=== PATIENT | male | born 1985 | race Hispanic/Latino ===

== ENCOUNTER 2018-12-04 15:33 | Inpatient (IN) | payer BC ==
[~2018-12-04] VITALS: Ht 167.6 cm; Wt 96.6 kg
[2018-12-04 15:55] LABS: BASOPHILS % (AUTO) 0.4 % (0.0-5.0); EOSINOPHILS % (AUTO) 0.6 % (0.0-8.0); HEMATOCRIT 45.1 % (42-54); LYMPHOCYTES % (AUTO) 17.7 % (21.0-51.0); MEAN CORPUSCULAR HEMOGLOBIN 30.9 pg (27.0-33.0); MEAN CORPUSCULAR HGB CONC 35.3 g/dL (32.0-36.0); MEAN CORPUSCULAR VOLUME 87.4 fL (79-99); MONOCYTES % (AUTO) 6.6 % (3.0-13.0); NEUTROPHILS % (AUTO) 74.7 % (40.0-77.0); NUCLEATED RED BLOOD CELLS 0.1 % (0.0-0.19); PLATELET COUNT (AUTO) 244 K/uL (130-400); RED BLOOD CELL COUNT(AUTO) 5.15 MIL/uL (4.50-6.20); RED CELL DISTRIBUTION WIDTH 13.8 % (11.0-15.5); WHITE BLOOD COUNT (AUTO) 15.6 K/uL (4.8-10.8)
[2018-12-04 16:09] LABS: POTASSIUM 3.6 mmol/L (3.5-5.1)
[2018-12-04 16:10] LABS: APPEARANCE,URINE Clear (CLEAR); BILIRUBIN,URINE Negative (NEGATIVE); COLOR,URINE Yellow (YELLOW); GLUCOSE, URINE (UA) Negative (NEGATIVE); KETONES,URINE Negative (NEGATIVE); LEUKOCYTE ESTERASE ,URINE Negative (NEGATIVE); NITRATE,URINE Negative (NEGATIVE); OCCULT BLOOD,URINE Negative (NEGATIVE); PH,URINE 6.5 (5.0-8.0); PROTEIN,URINE Negative (NEGATIVE)
[2018-12-04] MEDS ORDERED: KETOROLAC TROMETHAMINE 30MG/ML ONE (16:11)
[2018-12-04] MEDS ORDERED: SODIUM CHLORIDE 0.9% 1000ML 1,000 ML IV ONE ×2 (16:11→18:19)
[2018-12-04] MEDS ORDERED: ONDANSETRON HCL 4 MG/2 ML VIAL ONE ×2 (16:11→18:19)
[2018-12-04] MEDS ORDERED: MORPHINE SULFATE 4 MG/1ML SYG ONE ×2 (16:11→18:19)
[2018-12-04 16:21] LABS: BILIRUBIN,TOTAL 1.7 mg/dL (0.2-1.0); TOTAL PROTEIN, SERUM 7.6 g/dL (6.0-8.3)
[2018-12-04] MEDS ORDERED: SODIUM CHLORIDE 0.9% 1000ML 1,000 ML IV SCH (19:34)
[2018-12-04] MEDS ORDERED: ONDANSETRON HCL 4 MG/2 ML VIAL IVP PRN (19:45)
[2018-12-04] MEDS ORDERED: MORPHINE SULFATE 4 MG/1ML SYG IV PRN (19:45)
[2018-12-04] MEDS ORDERED: FAMOTIDINE/PF 20 MG/2 ML VIAL IV SCH (21:00)
[2018-12-05] MEDS ORDERED: ONDANSETRON HCL 4 MG/2 ML VIAL ONE (03:31)
[2018-12-05] MEDS ORDERED: MORPHINE SULFATE 2 MG/ML 1ML SYG ONE (03:31)
[2018-12-05] MEDS ORDERED: SODIUM CHLORIDE 0.9% 1000ML 1,000 ML IV ONE (03:32)
[2018-12-05 03:54] LABS: BASOPHILS % (AUTO) 1.1 % (0.0-5.0); EOSINOPHILS % (AUTO) 2.3 % (0.0-8.0); HEMATOCRIT 42.8 % (42-54); LYMPHOCYTES % (AUTO) 32.4 % (21.0-51.0); MEAN CORPUSCULAR HEMOGLOBIN 30.4 pg (27.0-33.0); MEAN CORPUSCULAR HGB CONC 34.7 g/dL (32.0-36.0); MEAN CORPUSCULAR VOLUME 87.6 fL (79-99); MONOCYTES % (AUTO) 10.6 % (3.0-13.0); NEUTROPHILS % (AUTO) 53.6 % (40.0-77.0); NUCLEATED RED BLOOD CELLS 0.1 % (0.0-0.19); PLATELET COUNT (AUTO) 221 K/uL (130-400); RED BLOOD CELL COUNT(AUTO) 4.89 MIL/uL (4.50-6.20); RED CELL DISTRIBUTION WIDTH 13.6 % (11.0-15.5); WHITE BLOOD COUNT (AUTO) 9.2 K/uL (4.8-10.8)
[2018-12-05 04:04] LABS: ALBUMIN 3.2 g/dL (3.5-5.0); BILIRUBIN,DIRECT 0.3 mg/dL (0.0-0.3); BILIRUBIN,TOTAL 2.1 mg/dL (0.2-1.0); CREATININE 0.8 mg/dL (0.5-1.5); POTASSIUM 3.7 mmol/L (3.5-5.1); TOTAL PROTEIN, SERUM 6.5 g/dL (6.0-8.3)
[2018-12-05 04:59] LABS: ERYTHROCYTE SEDIMENTATION RATE 2 MM/HR (0-15)
[2018-12-05 08:40] VITALS: BP 117/86
[2018-12-05] MEDS: KETOROLAC TROMETHAMINE 30MG/ML IV PRN ×2 (10:07→17:02)
--- NOTE | 2018-12-05 10:20 | NUR ---
DR COREAS CAME IN TO SEE AND ASSESSED THE PATIENT. NEW ORDERS RECEIVED. PATIENT WAS TAKEN AT THIS TIME TO MRI FOR ORDERED TEST.
[2018-12-05 10:22] LABS: AMPHET/METH SCREEN,URINE NEGATIVE (NEGATIVE); BARBITURATE SCREEN, URINE NEGATIVE (NEGATIVE); BENZODIAZEPINES SCREEN,URINE NEGATIVE (NEGATIVE); CANNABINOID SCREEN,URINE NEGATIVE (NEGATIVE); COCAINE SCREEN,URINE NEGATIVE (NEGATIVE); OPIATE SCREEN,URINE NEGATIVE (NEGATIVE); PHENCYCLIDINE SCREEN,URINE NEGATIVE (NEGATIVE)
--- NOTE | 2018-12-05 10:45 | NUR ---
RETURNED FROM MRI. REPORTED SOME PAIN RELIEF.
[2018-12-05 12:50] VITALS: BP 122/77
--- NOTE | 2018-12-05 14:50 | NUR ---
DCP CM met with pt discussed dc plans. Pt is independent prior to admission, lives at home along, girlfriend lives close by. Pt is from [place], currently here for work, was living in a hotel prior to admission, plans to go back to [place] once done w/work. Pt has a cpap. Denies any other equipments/services. Pt feels safe to go back home, still drives and works, arranges own needs. DC plan to home once stable. CM to cont to follow up. Addendum: 12/05/18 at 1451 by TEAGAN MEJIA LVN CM Amended: Links added.
[2018-12-05 16:00] VITALS: BP 131/89
[2018-12-05] MEDS ORDERED: IBUP-1493 PO (16:28)
--- NOTE | 2018-12-05 19:50 | NUR ---
DISCHARGE INSTRUCTIONS WERE EXPLAINED TO THE PATIENT WITH ACTIVITY RESTRICTION AND PCP FOLLOW UP FOR WORK CLEARANCE, HE VERBALIZED CLEAR UNDERSTANDING. IV ACCESS WAS REMOVED WITHOUT COMPLICATION AND THE PATIENT LEFT THE UNIT AMBULATORY IN STABLE CONDITION ACCOMPANIED BY FAMILY MEMBERS.
== END 2018-12-05 19:45 | disposition home or self-care (01) | DRG 563 ==
LOC: EDH 15:33 → OBSVTOIN 19:34 → EDHIP 19:34 → 3DH 12-05 08:19
PROVIDERS: ADMIT Internal Medicine; ATTEND Internal Medicine
DX: S39.011A Strain of muscle, fascia and tendon of abdomen, initial encounter (principal); D72.829 Elevated white blood cell count, unspecified; G47.33 Obstructive sleep apnea (adult) (pediatric); K21.9 Gastro-esophageal reflux disease without esophagitis; K76.0 Fatty (change of) liver, not elsewhere classified; X58.XXXA Exposure to other specified factors, initial encounter; Y93.89 Activity, other specified; Y92.89 Other specified places as the place of occurrence of the external cause; Y99.8 Other external cause status
CPT/HCPCS: 36415; 74176; 74181; 76705; 80048; 80053; 80076; 80305; 81003; 82150; 83690; 84484; 85025; 85651; 86140; 93005; G0378; J1885; J2270; J2405; J3490; J7030